=== PATIENT | male | born 1980 | race Caucasian/White ===

== ENCOUNTER → 2018-07-28 | Outpatient (CLI) | payer OTHER | LOC: FIMAGING 07:16 | PROVIDERS: ATTEND Internal Medicine Hematology & Oncology | DX: E83.118 Other hemochromatosis (principal) | CPT/HCPCS: 76705-PO ==

== ENCOUNTER → 2018-08-25 | Outpatient (CLI) | payer OTHER | LOC: FIMAGING 15:42 | PROVIDERS: ATTEND Internal Medicine Pulmonary Disease | DX: R05 Cough (principal); R06.09 Other forms of dyspnea; R09.82 Postnasal drip ==